=== PATIENT | female | born 1960 | race Caucasian/White ===

== ENCOUNTER → 2018-04-07 | Outpatient (CLI) | payer OTHER ==
--- NOTE | 2018-04-10 11:57 | MAM ---
EXAM DESCRIPTION: 3D Screening BILATERAL : Digital Mammography. CLINICAL HISTORY: 58 years Female SCREENING . No complaints or personal history of breast cancer. Sister with breast cancer. Childbirth. Postmenopausal 16 years. Currently on HRT. Lifetime risk of developing breast cancer (Tyrer-Cuzick model)(%): 14.2. COMPARISON: Baseline study at this facility. No prior reports available. TECHNIQUE: Bilateral CC and MLO projection full-field images, digital tomosynthesis mammographic technique. Bilateral digital 2-D full-field MLO images. CAD not available for tomosynthesis or 2-D images. FINDINGS: The breast parenchymal density pattern is: Heterogeneously dense breast tissue, which may obscure small masses. No skin thickening or nipple retraction. Mass density in the lateral right breast posterior third most likely an intramammary lymph node with well-circumscribed margins and density the same as surrounding fibroglandular tissues.. 9:00 position 9.5 cm from the nipple. Focal asymmetry versus architectural distortion posterior third of the left breast at the 8:00 position of the breast, 10 cm from the nipple. IMPRESSION: BI-RADS CATEGORY: 0 - INCOMPLETE- Need additional imaging evaluation. FOLLOW-UP: Recall for additional imaging: Bilateral targeted breast ultrasound of the regions of interest. Diagnostic full field digital mammography if indicated by ultrasound images.. Written communication concerning the IMPRESSION and Follow-up, will be mailed to the patient and referring health care provider. Electronically signed by: John West MD 04/10/2018 11:56 AM MEDICAL CENTER MANAGER
== END ==
LOC: MAMMO 13:00
PROVIDERS: ATTEND Nurse Practitioner Family
DX: Z12.31 Encounter for screening mammogram for malignant neoplasm of breast (principal)

== ENCOUNTER → 2018-05-03 | Outpatient (CLI) | payer OTHER ==
--- NOTE | 2018-05-03 13:23 | US ---
EXAM DESCRIPTION: Breast,Bilateral: Ultrasound CLINICAL HISTORY: 58 [id number] COMPARISON: Digital screening tomosynthesis bilateral breasts 04/07/2018. No prior breast ultrasound. TECHNIQUE: Transcutaneous scanning of the bilateral breasts utilizing ahmadi-scale and Doppler modes. Scanning performed by the assistant plant controller and Dr. West. FINDINGS: Scanning of the left breast lower inner quadrant posterior third and middle third. Predominantly fatty tissue with minimal fibroglandular echotexture. Scanning specifically 7:00 and 8:00 sectors 10 cm from the nipple. No dominant solid mass or distinct cyst. No parenchymal edema or large calcifications. No overlying skin changes. Normal vascularity. Scanning of the right breast lateral and upper outer quadrant middle third and distal third. Heterogeneous mixture of fibroglandular and fatty echotexture. Scanning specifically in the 8:00 and 9:00 to 10:00 sectors. No dominant solid mass or distinct cyst. No parenchymal edema or large calcifications. No overlying skin changes. Normal vascularity. IMPRESSION: Benign exam. BIRAD CATEGORY: 2 BENIGN FINDINGS. RECOMMENDATIONS: FOLLOW UP: Return to routine digital bilateral mammographic screening, one year interval from April 2018. The FINDINGS and the FOLLOW-UP plan were reviewed in person with the patient after the examination. Written communication explaining the IMPRESSION and FOLLOW-UP will be mailed to the patient and referring care provider. According to the [employer], yearly mammograms are recommended starting at age 40 and continuing as long as a woman is in good health. Any breast change noted on a breast self-exam should be reported promptly to the patient's healthcare provider. Breast MRI is recommended for women with an approximately 20-25% or greater lifetime risk of breast cancer, including women with a strong family history of breast or ovarian cancer and women who have been treated for Hodgkin's disease. A negative mammographic report should not delay tissue diagnosis in patients with significant clinical history or physical findings. Extremely dense breast tissue limits the sensitivity of digital mammography. Electronically signed by: John West MD 05/03/2018 1:21 PM [facility]
== END ==
LOC: US 08:52
PROVIDERS: ATTEND Nurse Practitioner Family
DX: R92.8 Other abnormal and inconclusive findings on diagnostic imaging of breast (principal)